=== PATIENT | male | born 1960 | race Caucasian/White ===

== ENCOUNTER 2021-07-29 09:26 | Outpatient (CLI) | payer BC | END 2021-07-29 09:27 | disposition home or self-care (01) | LOC: RAD 09:26 | PROVIDERS: ATTEND Internal Medicine Critical Care Medicine | DX: R06.00 Dyspnea, unspecified (principal) | CPT/HCPCS: 71046 ==

== ENCOUNTER 2025-07-03 10:48 | Outpatient (CLI) | payer MEDICARE, BC ==
[2025-07-03 11:35] LABS: Estimated GFR - POC 67.0
== END 2025-07-03 10:49 | disposition home or self-care (01) ==
LOC: SCSMRI 10:48
PROVIDERS: ATTEND Urology
DX: N40.3 Nodular prostate with lower urinary tract symptoms (principal)
CPT/HCPCS: 36415; 72197; 82565